=== PATIENT | female | born 1970 | race American Indian/Alaskan Native ===

== ENCOUNTER 2021-04-28 19:11 | Emergency (ER) | payer SELFPAY ==
[2021-04-28] MEDS ORDERED: SODIUM CHLORIDE 0.9% 1000 ML 1,000 ML IV ONE ×2 (20:15)
[2021-04-28 20:59] LABS: Basophils % (Auto) 0.7 % (0.0-1.8); Eosinophils # (Auto) 0.1 K/mm3 (0.0-0.4); Eosinophils % (Auto) 1.6 % (0.0-4.3); Hematocrit 45.6 % (30.3-42.9); Lymphocytes # (Auto) 2.1 K/mm3 (1.2-5.4); Lymphocytes % (Auto) 30.6 % (13.4-35.0); Mean Corpuscular HGB Conc 33 % (30-34); Mean Corpuscular Volume 84 fl (79-97); Monocytes # (Auto) 0.4 K/mm3 (0.0-0.8); Monocytes % (Auto) 6.5 % (0.0-7.3); Platelet Count 224 K/mm3 (140-440); Red Blood Count 5.46 M/mm3 (3.65-5.03); Red Cell Distribution Width 14.1 % (13.2-15.2)
[2021-04-28 21:21] LABS: Alanine Aminotransferase 20 units/L (7-56); Albumin 4.2 g/dL (3.9-5); BUN/Creatinine Ratio 20; Blood Urea Nitrogen 16 mg/dL (7-17); Calcium 9.9 mg/dL (8.4-10.2); Hemolysis Index 8
--- NOTE | 2021-04-28 21:57 | Emergency Department Report ---
ED General Adult HPI - General Chief complaint: Hyperglycemia Stated complaint: DIABETES ISSUES Source: patient Mode of arrival: Ambulatory Limitations: No Limitations - History of Present Illness Initial comments: Patient is a 50-year-old -[place] female with a history of [id number] diabetes and hypertension who presents to the ED with complaint of persistent lightheadedness, dizziness and hyperglycemia for the last 2 weeks intermittently, worse in the last 3 days. Patient states that she ran out of her medications about 1 month ago and has not taken medications since then. Patient states that her primary care physician has not been able to see her because she lost her insurance and ran out of her medications too. Patient denies chest pain, shortness of breath, nausea and vomiting, abdominal pain, fever, chills, cough, sore throat, nasal and sinus congestion, dysuria, urinary frequency and urgency or vaginal bleeding. MD Complaint: Lightheadedness, elevated blood sugar; ran out of medication -: Sudden, week(s) (2) Location: head Radiation: non-radiation Severity scale (0 -10): 0 Quality: dull Consistency: constant Improves with: none Worsens with: none Associated Symptoms: denies other symptoms, loss of appetite. denies: confusion, chest pain, cough, diaphoresis, fever/chills, headaches, malaise, nausea/vomiting, rash, shortness of breath, syncope, weakness Treatments Prior to Arrival: none - Related Data Previous Rx's Medication Instructions Recorded Last Taken Type amLODIPine 10 mg PO DAILY #30 tab 04/28/21 Unknown Rx glipiZIDE [Glucotrol] 5 mg PO Q12H #60 tablet 04/28/21 Unknown Rx metFORMIN [Glucophage] 500 mg PO Q12H #60 tablet 04/28/21 Unknown Rx Allergies Allergy/AdvReac Type Severity Reaction Status Date / Time No Known Allergies Allergy Unverified 04/28/21 19:35 ED Review of Systems ROS: Stated complaint: DIABETES ISSUES Other details as noted in HPI Constitutional: malaise, weakness. denies: chills, fever Eyes: denies: eye pain, eye discharge, vision change ENT: denies: ear pain, throat pain Respiratory: denies: cough, shortness of breath, wheezing Cardiovascular: denies: chest pain, palpitations Endocrine: no symptoms reported Gastrointestinal: denies: abdominal pain, nausea, vomiting, diarrhea Genitourinary: denies: urgency, dysuria, discharge Musculoskeletal: denies: back pain, joint swelling, arthralgia Skin: denies: rash, lesions Neurological: denies: headache, weakness, paresthesias Psychiatric: denies: anxiety, depression Hematological/Lymphatic: denies: easy bleeding, easy bruising ED Past Medical Hx - Past Medical History Previous Medical History?: Yes Hx Hypertension: Yes Hx Diabetes: Yes - Surgical History Past Surgical History?: Yes Hx Appendectomy: Yes - Medications Home Medications: Home Medications Medication Instructions Recorded Confirmed Last Taken Type amLODIPine 10 mg PO DAILY #30 tab 04/28/21 Unknown Rx glipiZIDE [Glucotrol] 5 mg PO Q12H #60 tablet 04/28/21 Unknown Rx metFORMIN [Glucophage] 500 mg PO Q12H #60 tablet 04/28/21 Unknown Rx ED Physical Exam - General Limitations: No Limitations General appearance: alert, in no apparent distress - Head Head exam: Present: atraumatic, normocephalic, normal inspection - Eye Eye exam: Present: normal appearance, PERRL, EOMI Pupils: Present: normal accommodation - ENT ENT exam: Present: normal exam, normal orophraynx, mucous membranes moist, TM's normal bilaterally, normal external ear exam - Neck Neck exam: Present: normal inspection, full ROM - Respiratory Respiratory exam: Present: normal lung sounds bilaterally. Absent: respiratory distress, wheezes, rales, chest wall tenderness, accessory muscle use, decreased breath sounds, prolonged expiratory - Cardiovascular Cardiovascular Exam: Present: regular rate, normal rhythm, normal heart sounds. Absent: systolic murmur, diastolic murmur, rubs, gallop - GI/Abdominal GI/Abdominal exam: Present: soft, normal bowel sounds. Absent: distended, tenderness, guarding, rebound, hyperactive bowel sounds, hypoactive bowel sounds - Extremities Exam Extremities exam: Present: normal inspection, full ROM, normal capillary refill - Back Exam Back exam: Present: normal inspection, full ROM. Absent: tenderness, CVA tenderness (R), CVA tenderness (L), muscle spasm, paraspinal tenderness, vertebral tenderness - Neurological Exam Neurological exam: Present: alert, oriented X3, CN II-XII intact, normal gait, reflexes normal - Psychiatric Psychiatric exam: Present: normal affect, normal mood - Skin Skin exam: Present: warm, dry, intact, normal color. Absent: rash ED Course Vital Signs 04/28/21 19:33 Temperature 98.2 F Pulse Rate 79 Respiratory 18 Rate Blood Pressure 183/108 O2 Sat by Pulse 98 Oximetry ED Medical Decision Making - Lab Data Result diagrams: 04/28/21 20:17 04/28/21 20:17 - Medical Decision Making This is a 50-year-old -[place] female with a history of sbe-[id number]-[id number] diabetes and hypertension who presents to the ED with complaint of persistent lightheadedness, dizziness and hyperglycemia for the last 2 weeks intermittently, worse in the last 3 days. Patient states that she ran out of her medications about 1 month ago and has not taken medications since then. Patient states that her primary care physician has not been able to see her because she lost her insurance and ran out of her medications too. In the ED, patient is alert and oriented x3 and is not in any distress. Lab test results were reviewed and showed a hyperglycemia of 297 mg/dL. Patient received normal saline 2 L IV bolus x1. Reevaluation, patient [id number] serum glucose level was 259 mg/dL after 2 L of normal saline IV bolus. Patient was therefore discharged home on medications and advised to follow-up with her primary care physician in 7 to 10 days for reevaluation or return to the ED immediately if symptoms get worse. - Differential Diagnosis Hyperglycemia; anxiety; dehydration; Critical care attestation.: If time is entered above; I have spent that time in minutes in the direct care of this critically ill patient, excluding procedure time. ED Disposition Clinical Impression: Hyperglycemia due to type 2 diabetes mellitus Qualifiers: Diabetes mellitus termite exterminator helper insulin use: without termite exterminator helper use Qualified Code(s): E11.65 - Type 2 diabetes mellitus with hyperglycemia Disposition: 01 HOME / SELF CARE / HOMELESS Is pt being admited?: No Does the pt Need Aspirin: No Condition: Stable Instructions: Hyperglycemia, [id number], Type 2 Diabetes Mellitus, Self Care, Adult, [id number], Diabetes Mellitus Type 2 in Adults (ED) Additional Instructions: Take medications as advised, drink plenty of fluids and follow-up with your primary care physician in 7 to 10 days for reevaluation. Return to the ED immediately if symptoms get worse. Prescriptions: amLODIPine 10 mg PO DAILY #30 tab metFORMIN [Glucophage] 500 mg PO Q12H #60 tablet glipiZIDE [Glucotrol] 5 mg PO Q12H #60 tablet Referrals: [facility] [Provider Group] - 7-10 days Time of Disposition: 21:54 Print Language: TURKISH
[2021-04-29 00:03] VITALS: BP 195/112
== END 2021-04-28 23:59 | disposition home or self-care (01) ==
LOC: ED 19:11
DX: E11.65 Type 2 diabetes mellitus with hyperglycemia (principal); I10 Essential (primary) hypertension; Z90.49 Acquired absence of other specified parts of digestive tract; Z79.899 Other long term (current) drug therapy
CPT/HCPCS: 36415; 80053; 82962; 85025; 96360; 99283; J7030